=== PATIENT | male | born 1970 | race Caucasian/White ===

== ENCOUNTER 2022-05-06 13:46 | Emergency (ER) | payer OTHER, SELFPAY ==
[2022-05-06 13:48] VITALS: BP 164/109; PULSE 94; RESP 18; TEMP 36.5; O2SAT 99; BMI 32.1
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
[2022-05-06] MEDS: ACETAMINOPHEN 500 MG TABLET 1000 MG PO (14:26)
[2022-05-06] MEDS: OXYCODONE 5 MG TABLET 10 MG PO (14:34)
[2022-05-06] MEDS: LIDOCAINE 1 % PF 30 ML INJECTION (14:50)
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
[2022-05-06] MEDS: ONDANSETRON ODT 4 MG TAB PO (15:20)
[2022-05-06 15:36] VITALS: PULSE 87; O2SAT 94
--- NOTE | 2022-05-06 15:36 | ED.NURSE ---
Medium Cam Walker applied to pt R Leg.
== END 2022-05-06 15:47 | disposition home or self-care (01) ==
PROVIDERS: Emergency Provider Family Medicine
DX: S93.121A Dislocation of metatarsophalangeal joint of right great toe, initial encounter (principal); V43.52XA Car driver injured in collision with other type car in traffic accident, initial encounter; Y92.410 Unspecified street and highway as the place of occurrence of the external cause
CPT/HCPCS: 28635; 73630; 99283; A9270; J2001